=== PATIENT | female | born 1950 | race Caucasian/White ===

== ENCOUNTER 2020-02-17 07:21 | Outpatient (CLI) | payer MEDICARE, OTHER, SELFPAY ==
--- NOTE | ~2020-02-17 | MM_ITS ---
EXAMINATION: MM screening [facility] BI w nader HISTORY: Screening TECHNIQUE: Craniocaudal and mediolateral oblique 3-D tomosynthesis images were obtained and synthetic 2-D images were generated. CAD analysis was submitted and interpreted. COMPARISON: Comparison to multiple prior studies sequentially, with oldest reviewed study dated 02/24. BREAST PARENCHYMAL COMPOSITION: There are scattered areas of fibroglandular density. FINDINGS: There is no evidence of suspicious mass, calcification, or architectural distortion to sugg est malignancy in either breast. There has been no suspicious interval change. IMPRESSION: 1. No mammographic evidence of malignancy. 2. Recommend routine screening mammography in one year. BI-RADS Category 1: Negative Reviewed, dictated and finalized at location A.
== END 2020-02-17 07:22 | disposition home or self-care (01) ==
LOC: ANHIMG 07:23
PROVIDERS: PCP Family Medicine; Visit Provider Obstetrics & Gynecology
DX: Z12.31 Encounter for screening mammogram for malignant neoplasm of breast (principal)
CPT/HCPCS: 77063; 77067

== ENCOUNTER 2020-10-06 11:16 | Outpatient (CLI) | payer MEDICARE, OTHER, SELFPAY ==
[2020-10-06 12:09] LABS: Alanine Aminotransferase 15 U/L (4-35); Albumin Level 4.1 g/dL (3.5-5.1); Alkaline Phosphatase 101 U/L (38-126); Anion Gap 4 mmol/L (8-16); Aspartate Amino Transferase 23 U/L (14-36); Bilirubin,Total 0.3 mg/dL (0.2-1.3); Blood Urea Nitrogen 20 mg/dL (7-17); Calcium 9.3 mg/dL (8.4-10.2); Carbon Dioxide 30 mmol/L (22-30); Chloride 104 mmol/L (98-107); Estimated Glomerular Filt Rate > 60; Glucose 96 mg/dL (65-105); Potassium 4.2 mmol/L (3.4-5.0); Sodium 138 mmol/L (137-145)
== END 2020-10-06 11:17 | disposition home or self-care (01) ==
PROVIDERS: PCP Family Medicine; Visit Provider Family Medicine
DX: I10 Essential (primary) hypertension (principal)
CPT/HCPCS: 36415; 80053

== ENCOUNTER → 2021-04-09 00:29 | Outpatient (CLI) | payer MEDICARE, OTHER, SELFPAY ==
[2021-04-09 18:39] LABS: SARS-CoV-2 RNA PCR Negative
== END ==
PROVIDERS: PCP Family Medicine; Visit Provider Physician Assistant Medical
DX: Z20.822 Contact with and (suspected) exposure to COVID-19 (principal)
CPT/HCPCS: C9803; U0003; U0005

== ENCOUNTER 2021-05-09 08:04 | Outpatient (CLI) | payer MEDICARE, OTHER, SELFPAY ==
--- NOTE | ~2021-05-09 | MM_ITS ---
EXAMINATION: MM screening [facility] BI w nader HISTORY: Screening TECHNIQUE: Craniocaudal and mediolateral oblique 3-D tomosynthesis images were obtained and synthetic 2-D images were generated. CAD analysis was submitted and interpreted. COMPARISON: Comparison to multiple prior studies sequentially, with oldest reviewed study dated 02/24. BREAST PARENCHYMAL COMPOSITION: There are scattered areas of fibroglandular density. FINDINGS: There is no evidence of suspicious mass, calcification, or architectural distortion to sugg est malignancy in either breast. There has been no suspicious interval change. IMPRESSION: 1. No mammographic evidence of malignancy. 2. Recommend routine screening mammography in one year. BI-RADS Category 1: Negative Reviewed, dictated and finalized at location A.
== END 2021-05-09 08:05 | disposition home or self-care (01) ==
PROVIDERS: PCP Family Medicine; Visit Provider Obstetrics & Gynecology
DX: Z12.31 Encounter for screening mammogram for malignant neoplasm of breast (principal)
CPT/HCPCS: 77063; 77067

== ENCOUNTER 2022-06-15 08:42 | Outpatient (CLI) | payer MEDICARE, OTHER, SELFPAY ==
--- NOTE | ~2022-06-15 | MM_ITS ---
EXAMINATION: MM screening [facility] BI w nader HISTORY: Screening mammogram TECHNIQUE: Craniocaudal and mediolateral oblique 3-D tomosynthesis images were obtained and synthetic 2-D images were generated. CAD analysis was submitted and interpreted. COMPARISON: 05/09/2021, 02/17/2020, 01/25/2019 bilateral screening mammogram examinations BREAST PARENCHYMAL COMPOSITION: There are scattered areas of fibroglandular density. FINDINGS: There is no evidence of suspicious mass, calcification, or architectural distortion to sugg est malignancy in either breast. There has been no suspicious interval change. IMPRESSION: 1. No mammographic evidence of malignancy. 2. Recommend routine screening mammography in one year. BI-RADS Category 1: Negative Reviewed, dictated and finalized at location A. DATION CONSULTANT
== END 2022-06-15 08:43 | disposition home or self-care (01) ==
LOC: ANHIMG 08:45
PROVIDERS: PCP Family Medicine; Visit Provider Obstetrics & Gynecology
DX: Z12.31 Encounter for screening mammogram for malignant neoplasm of breast (principal)
CPT/HCPCS: 77063; 77067

== ENCOUNTER 2023-05-14 08:37 | Outpatient (CLI) | payer MEDICARE, OTHER, SELFPAY ==
[2023-05-14 20:00] LABS: Anion Gap 3 mmol/L (8-16); Blood Urea Nitrogen 17 mg/dL (7-17); Calcium 9.4 mg/dL (8.4-10.2); Carbon Dioxide 32 mmol/L (22-30); Chloride 104 mmol/L (98-107); Estimated Glomerular Filt Rate > 60; Glucose 84 mg/dL (65-110); Potassium 4.6 mmol/L (3.4-5.0); Sodium 139 mmol/L (137-145)
== END 2023-05-14 08:38 | disposition home or self-care (01) ==
LOC: ANHGOSHLAB 08:38
PROVIDERS: PCP Family Medicine; Visit Provider Family Medicine
DX: I10 Essential (primary) hypertension (principal)
CPT/HCPCS: 36415; 80048

== ENCOUNTER 2023-07-24 07:42 | Outpatient (CLI) | payer MEDICARE, OTHER, SELFPAY ==
--- NOTE | ~2023-07-24 | MM_ITS ---
EXAMINATION: MM screening [facility] BI w nader HISTORY: Screening mammogram TECHNIQUE: Craniocaudal and mediolateral oblique 3-D tomosynthesis images were obtained and synthetic 2-D images were generated. CAD analysis was submitted and interpreted. COMPARISON: 06/15/2022, 05/09/2021, 02/17/2020 bilateral screening mammogram examinations BREAST PARENCHYMAL COMPOSITION: The breasts are almost entirely fatty. FINDINGS: There is no evidence of suspicious mass, calcification, or architectural distortion to sugg est malignancy in either breast. There has been no suspicious interval change. IMPRESSION: 1. No mammographic evidence of malignancy. 2. Recommend routine screening mammography in one year. BI-RADS Category 1: Negative Reviewed, dictated and finalized at location A. DUMPER
== END 2023-07-24 07:43 | disposition home or self-care (01) ==
LOC: ANHIMG 07:44
PROVIDERS: PCP Family Medicine; Visit Provider Family Medicine
DX: Z12.31 Encounter for screening mammogram for malignant neoplasm of breast (principal)
CPT/HCPCS: 77063; 77067

== ENCOUNTER 2024-09-20 06:19 | Day surgery (SDC) | payer MEDICARE, OTHER, SELFPAY ==
[2024-06-15 08:32] VITALS: BMI 32.6
[2024-08-30 13:24] VITALS: BMI 31.6
--- OUTSIDE RECORDS SUMMARY | 2024-09-20 06:30 | XMS_ITS | Patient Health Summary ---
Author Organization [facility] Address [address] [place] [address] Care Team Providers Care Regulatory Intern Name Role Phone Chi Bull MD Primary Care Provider +1- [phone] Note from [facility],non-owned Affiliates and Associated Physician Practices is amultiple site organization consisting of ambulatory clinics and hospital sitesin [place], [place], [place] and [place]. This disclosure is being madepursuant to the Care Everywhere program and may not contain all information available regarding this patient. Last updated 18.[facility] Social History Tobacco Use Types Packs/Day Years Used Date Smoking Tobacco: Never Alcohol Use Standard Drinks/Week Comments No 0 (1 standard drink = 0.6 oz pur e alcohol) Sex and Gender Information Value Date Recorded Sex Assigned at Not on file Gender Identity Not on file Sexual Orientation Not on file Last Filed Vital Signs Vital Sign Reading Time Taken Comments Blood Pressure 160/80 05/11/2013 11:32 AM CDT Pulse - - Temperature 36.9 C (98.5 F) 05/11/2013 11:32 AM CDT Respiratory Rate - - Oxygen Saturation - - Inhaled Oxygen Concentration - - Weight 96.6 kg (213 lb) 05/11/2013 11:32 AM CDT Height 160 cm (5' 3 ) 05/11/2013 11:32 AM CDT Body Mass Index 37.73 05/11/2013 11:32 AM CDT Procedures * XR KNEE RIGHT 4VW OR MORE(Performed 05/11/2013) Results * XR KNEE RIGHT 4VW OR MORE (05/11/2013 11:11 AM CDT) Anatomical Region Laterality Modality Lower Extremity Other Impressions 05/11/2013 1:00 PM CDT Impression: Mild medial and patellofemoral compartment osteoarthritis. This report was electronically signed by LEO RIVERA MD on 05/11/2013 1:00 PM . Narrative 05/11/2013 1:00 PM CDT Right knee, 4 views. History: Knee pain. Comparison: None. Findings: There is no acute fracture or dislocation. There is mild medial compartment joint space narrowing. There is also mild patellofemoral compartment joint space narrowing medially. There are small tricompartmental osteophytes. A small ossific fragment versus calcification is noted adjacent to the medial femoral condyle which could relate to prior traumatic injury or medial collateral ligament sprain. No effusion is seen. Procedure Note Leo Rivera MD - 10/26/2017 Right knee, 4 views. History: Knee pain. Comparison: None. Findings: There is no acute fracture or dislocation. There is mild medialcompartment joint space narrowing. There is also mild patellofemoralcompartment joint space narrowing medially. There are smalltricompartmental osteophytes. A small ossific fragment versus calcification is noted adjacent to the medial femoral condyle which couldrelate to prior traumatic injury or medial collateral ligament sprain. Noeffusion is seen. IMPRESSION Impression: Mild medial and patellofemoral compartment osteoarthritis. This report was electronically signed by LEO RIVERA MD on05/11/2013 1:00 PM . Juan Flores MD DIAGNOSTIC IMAGING ORDERABLES Care Teams Regulatory Intern Relationship Specialty Start Date End Date Chi Bull MD [address] [place] [phone] PCP - General 04/30/13
--- OUTSIDE RECORDS SUMMARY | 2024-09-20 06:30 | XMS_ITS | Referral Summary ---
Author Organization [facility] Address [address] [place] [address] Care Team Providers Care Foreign Exchange Trader Name Role Phone Chi Bull MD Primary Care Provider +1- [phone] Source Comments [facility],non-owned Affiliates and Associated Physician Practices is amultiple site organization consisting of ambulatory clinics and hospital sitesin [place], [place], [place] and [place]. This disclosure is being madepursuant to the Care Everywhere program and may not contain all information available regarding this patient. Last updated 18.[facility] Social History Tobacco Use Types Packs/Day Years [...] Mass Index 37.73 05/11/2013 11:32 AM CDT Plan of Treatment Not on file Care Teams Foreign Exchange Trader Relationship Specialty Start Date End Date Chi Bull MD [facility] [place] [place] [phone] PCP - General 04/30/13
--- OUTSIDE RECORDS SUMMARY | 2024-09-20 06:30 | XMS_ITS | Clinical Summary ---
Author Organization [facility] Address [address] [place] [address] Care Team Providers Care Order Desk Caller Name Role Phone Unavailable Primary Care Provider Unavailabl e Social History Tobacco Use Types Packs/Day Years Used Date Smoking Tobacco: Never Assessed Comments Unknown Sex and Gender Information Value Date Recorded Sex Assigned at Not on file Legal Sex Female 4:05 PM CDT Gender Identity Not on file Sexual Orientation Not on file Plan of Treatment Health Maintenance Due Date Last Done Comments Colorectal Cancer Screening Colonoscopy (10 Years) 1950 Hepatitis C 1969 DTaP, Tdap and Td Vaccines ( 1 - Tdap) 1970 Mammogram Screening 1991 Zoster Vaccines (1 of 2) 2001 Dexa Scan (General) 02/08/2016 Pneumococcal Vaccine: 65+ Ye ars (1 of 1 - PCV) 02/08/2016 COVID-19 Vaccine (2023-2 5 season) 2024 Influenza Adult (#1) 2024 RSV Immunization or 60+ Years (1 - 1-dose 75+ series) 2026 Meningococcal B Vaccine Aged Out No l onger eligible based on patient's age to complete this topic Meningococcal Vaccine Aged Out No keith aster eligible based on patient's age to complete this topic RSV Immunizations Under 20 Months Aged Out No longer eligible based on patient's age to complete this topic
--- OUTSIDE RECORDS SUMMARY | 2024-09-20 06:30 | XMS_ITS | Clinical Summary ---
Author Organization [facility] Address [address] [facility] [place] [address] Care Team Providers Care Cane Piler Name Role Phone Chi Bull MD Primary Care Provider +1- [phone] Source Comments [facility],non-owned Affiliates and Associated Physician Practices is amultiple site organization consisting of ambulatory clinics and hospital sitesin [place], [place], [place] and [place]. This disclosure is being madepursuant to the Care Everywhere program and may not contain all information available regarding this patient. Last updated 18.[facility] Social History Tobacco Use Types Packs/Day Years [...] 05/11/2013 11:32 AM CDT Plan of Treatment Health Maintenance Due Date Last Done Comments BONE DENSITY TESTING 1950 COLOGUARD (AGES 45-75) - COL ON CA SCREENING 1950 COLON MONITORING 1950 COLONOSCOPY - COLON CA SCREENING 1950 CT COLONOGRAPHY - COLON CA SCREENING 1950 Colorectal Cancer Screening 1950 FIT - COLON CA SCREENING 1950 FLEX SIG - COLON CA SCREENING 1950 LIPID TESTING 1950 MAMMOGRAM 1950 HEPATITIS C SCREENING 02/02/1969 DTAP/TDAP/TD VACCINES (1 - Tdap) 1970 PNEUMOCOCCAL VACCINE 50+ (1 of 1 - PCV) 2001 ZOSTER VACCINE (1 of 2) 2001 COVID-19 VACCINE (1 - 2023-2 5 season) 2024 INFLUENZA VACCINE (#1) 2024 DEPRESSION SCREENING 07/28/2024 Respiratory Syncytial Virus (RSV) Vaccine Pt: or over 60 yrs (1 - 1-dose 75+ series) 2026 HEPATITIS B VACCINE Aged Out No longe r eligible based on patient's age to complete this topic HIB VACCINE Aged Out No longer eligi ble based on patient's age to complete this topic HPV VACCINE Aged Out No longer eligi ble based on patient's age to complete this topic MENINGOCOCCAL (Group B) VACCINE Aged Out No longer eligible based on patient's age to complete this topic MENINGOCOCCAL VACCINE Aged Out No keith aster eligible based on patient's age to complete this topic Care Teams Cane Piler Relationship Specialty Start Date End Date Chi Bull MD [address] [place] [phone] PCP - General 04/30/13
[2024-09-20 06:50] VITALS: BP 137/58; PULSE 75; RESP 16; TEMP 36.9; O2SAT 100
--- NOTE | 2024-09-20 06:51 | P.PNAN_ITS ---
Anes - Initial Pre Proc Eval Procedure: Operation Date: 09/20/24 08:00 Proposed Procedures p Screening Colonoscopy - Armaan Colorado MD Date/Time: 09/20/24 06:51 Surgeon: Armaan Colorado MD Pre Op Diagnosis: Screening Neoplasm of Colon Patient Data Age: 74 Gender: F Height: 1.6 m Weight: 82.5 kg Allergies Allergy/AdvReac Type Severity Reaction Status Date / Time No Known Allergies Allergy Verified 09/20/24 06:49 Home Medications ?Medication ?Instructions ?Recorded ?Confirmed ?Type vitamins A,C,J-hiwl-yidiwn 4,296 1 cap PO BID 08/24/19 09/20/24 History mcg-226 mg-90 mg capsule (PreserVision AREDS) albuterol sulfate 90 mcg/actuation 2 puff inhalation Q4H PRN 05/19/24 09/20/24 Rx aerosol inhaler bronchospasm #8.5 grams lisinopril 10 mg tablet 10 mg PO DAILY #90 tabs 05/19/24 09/20/24 Rx Patient hx anesthesia problems: none Family hx anesthesia problems: none Results Review: All pre-operative results and documents have been reviewed as part of the pre- operative evaluation. [facility] Past Medical History Medical History (Updated 09/17/24 @ 16:09 by Leo Love DO) Asthma Anemia Endometrial hyperplasia, unspecified Unspecified closed fracture of ankle Obesity (BMI 30.0-34.9) Colon cancer screening HTN (hypertension), benign Family History Family History Father Hypertension Family history of cardiovascular disease Mother Hypertension Family history of cardiovascular disease Family history of malignant neoplasm of breast in first degree relative Social History Social History Smoking status: Former smoker Tobacco type: cigarettes Alcohol intake: current Alcohol use details: 4-5 glasses of wine per month Substance use type: does not use Lack of Transportation: No Lack of Food: Never True Current Housing: I Have Housing Concerned About Future Housing: No Difficulty Paying Gas/Electric Bills: No Difficulty Paying for Meds: No Currently Unemployed: No Education: Associate Degree Difficulty w/ Childcare or Family Care: No Living arrangements: with family Spiritual care concerns: No Anes - Eval Final PreProcedure Day of Procedure 09/20/24 06:51 Patient weight: obese Heart: regular rate and rhythm Lungs: clear to auscultation Airway: Mallampati scale class II Neurological: alert and oriented Last oral intake: >/= 8 hours ASA classification: III Emergent: no Anesthetic plan: proceed Anesthesia type and monitoring: general GIVS and standard monitoring Results Review: All pre-operative results and documents have been reviewed as part of the pre- operative evaluation. Informed Consent: The patient's anesthetic plan and its attendant risks and benefits were discussed with the patient/family/POA. Questions were solicited and answers provided to the satisfaction of the patient/family/POA.
[2024-09-20] MEDS: LACTATED RINGERS 1,000 ML 150 ML IV CONT (07:00)
--- NOTE | 2024-09-20 08:00 | PM.IMHP ---
H&P: HPI History of Present Illness Date/Time: 09/20/24 08:00 Chief Complaint: Screening colonoscopy Narrative: This is the patient's first colonoscopy after 10 years. There are no GI symptoms and there is no family history of colorectal cancer. Review of Systems Review of Systems: All systems reviewed & are unremarkable except as noted in HPI and below PMFSH Past Medical History Medical History (Updated 09/17/24 @ 16:09 by Leo Love DO) Asthma Anemia Endometrial hyperplasia, unspecified Unspecified closed fracture of ankle Obesity (BMI 30.0-34.9) Colon cancer screening HTN (hypertension), benign Family History Family History Father Hypertension Family history of cardiovascular disease Mother Hypertension Family history of cardiovascular disease Family history of malignant neoplasm of breast in first degree relative Social History Social History Smoking status: Former smoker Tobacco type: cigarettes Alcohol intake: current Alcohol use details: 4-5 glasses of wine per month Substance use type: does not use Lack of Transportation: No Lack of Food: Never True Current Housing: I Have Housing Concerned About Future Housing: No Difficulty Paying Gas/Electric Bills: No Difficulty Paying for Meds: No Currently Unemployed: No Education: Associate Degree Difficulty w/ Childcare or Family Care: No Living arrangements: with family Spiritual care concerns: No Meds Home Medications and Allergies Home Medications ?Medication ?Instructions ?Recorded ?Confirmed ?Type vitamins A,C,C-gdna-mcpvpa 4,296 1 cap PO BID 08/24/19 09/20/24 History mcg-226 mg-90 mg capsule (PreserVision AREDS) albuterol sulfate 90 mcg/actuation 2 puff inhalation Q4H PRN 05/19/24 09/20/24 Rx aerosol inhaler bronchospasm #8.5 grams lisinopril 10 mg tablet 10 mg PO DAILY #90 tabs 05/19/24 09/20/24 Rx Allergies Allergy/AdvReac Type Severity Reaction Status Date / Time No Known Allergies Allergy Verified 09/20/24 06:49 Vital Signs Vital Signs - 24 hr 09/20/24 06:50 Temperature 98.4 F Pulse Rate 75 Respiratory Rate 16 Blood Pressure 137/58 L Pulse Oximetry 100 Oxygen Delivery Room Air Exam Const: General: cooperative and healthy appearing Resp: Effort & Inspection: normal respiratory effort and able to speak in complete sentences Auscultation: clear to auscultation bilaterally Cardio: Rate: regular rate Rhythm: regular rhythm GI: Inspection: normal to inspection GI Palp: No No hepatosplenomegaly present Auscultation: normal bowel sounds Rectal Exam: deferred Skin: General skin exam: normal color Psych: Appearance: grossly normal Mental Status: mental status grossly normal Assessment and Plan Assessment and plan (1) Colon cancer screening: Code(s): Z12.11 - Encounter for screening for malignant neoplasm of colon Status: Acute Assessment and Plan: The patient is deemed a good candidate for the procedure. Consent signed. Will proceed.
[2024-09-20 08:24] VITALS: BP 95/78; PULSE 61; RESP 15; O2SAT 100
[2024-09-20 08:34] VITALS: BP 139/60; PULSE 57; RESP 15; O2SAT 100
[2024-09-20 08:44] VITALS: BP 144/56; PULSE 57; RESP 16; O2SAT 100
--- NOTE | 2024-09-20 10:05 | WPDANESPN ---
Anes - Prog Note Post-Op Date/Time: 09/20/24 10:05 Cardiovascular status: normal Respiratory status: normal Airway patency: baseline Mental status: baseline Post-Op hydration status: normal Vital Signs: Last Vital Signs Temp 36.9 C 09/20/24 06:50 Pulse 57 L 09/20/24 08:44 Resp 16 09/20/24 08:44 BP 144/56 H 09/20/24 08:44 Pulse Ox 100 09/20/24 08:44 O2 Del Method Room Air 09/20/24 08:44 Pain Score (VAS): 0 I/O: Intake & Output 09/19/24 09/20/24 09/20/24 23:59 07:59 15:59 Intake Total 450 Balance 450 Post-procedural complaints: none Patient Feedback: Patient satisfied with anesthetic care. Other Findings: Patient vital signs back to baseline. Patient denies nausea and vomiting. Patient's pain under control. Patient OK for discharge.
== END 2024-09-20 08:55 | disposition home or self-care (01) ==
PROVIDERS: PCP Family Medicine; Visit Provider Internal Medicine Gastroenterology
PROC: 0DJD8ZZ Inspection of Lower Intestinal Tract, Via Natural or Artificial Opening Endoscopic (ICD-10-PCS; CPT 45378; principal; 2024-09-20 08:00)
DX: Z12.11 Encounter for screening for malignant neoplasm of colon (principal)
CPT/HCPCS: G0121

== ENCOUNTER 2024-11-03 13:15 | Outpatient (CLI) | payer MEDICARE, OTHER, SELFPAY ==
--- NOTE | ~2024-11-03 | DEXA_ITS ---
Bone Density Report Name: ADAMA BRITO Age: 74 Sex: Female Ethnicity: White Date of : 1950 Indication: postmenopausal; screening for osteoporosis; Referring Provider: KRYSTYNA ALEXIS Study: Bone densitometry was performed. Exam Date: November 03, 2024 Accession number: [id number] Bone Density: Region BMD T-score Z-score Classification AP Spine(L1-L4) 0.957 -0.8 1.5 Normal Femoral Neck (Left) 0.638 -1.9 0.1 Osteopenia Total Hip (Left) 0.741 -1.6 0.1 Osteopenia Femoral Neck (Right) 0.616 -2.1 -0.1 Osteopenia Total Hip (Right) 0.673 -2.2 -0.5 Osteopenia Total Hip Mean 0.707 -1.9 -0.2 Osteopenia World Health Organization criteria for BMD impression classify patients as: Normal (T-score at or above -1.0), Osteopenia (T-score between -1.0 and -2.5), or Osteoporosis (T-score at or below -2.5). 10-year Fracture Risk(1): Major Osteoporotic Fracture 12% Hip Fracture 2.8% Reported Risk Factors: [place] (), Neck BMD=0.616, BMI=33.4 (1) FRAX(R) Version 3.08. Fracture probability calculated for an untreated patient. Fracture probability may be lower if the patient has received treatment. Previous Exams: Region Exam Age BMD T-score BMD Change BMD Change Date g/cm2 vs Baseline vs Previous AP Spine (L1-L4) 11/03/2024 74 0.957 -0.8 -0.033 (-3.4%) -0.033 (-3.4%) 08/19/2016 66 0.991 -0.5 Total Hip(Left) 11/03/2024 74 0.741 -1.6 -0.130 (-14.9% -0.130 (-14.9% 08/19/2016 66 0.871 -0.6 Total Hip(Right) 11/03/2024 74 0.673 -2.2 -0.162 (-19.4% -0.162 (-19.4% 08/19/2016 66 0.836 -0.9 *Denotes significance at 95% confidence level, LSC for AP Spine = 0.022 g/cm2, LSC for Total Hip = 0.027 g/cm2 # Denotes dissimilar scan types or analysis methods Clinical Information Provided by Patient: Patient maximum height was 63.0 Menopause Age: 56 Drinks caffeinated beverages Onset of menses at age 11 Number of children 2 Impression: The patient has low bone mass, based on the Right Total Hip T-score. The patient has an estimated ten-year risk of hip fracture of 2.8% and an estimated ten-year risk of major fracture of 12%, based on the WHO FRAX algorithm. No significant bone loss was observed. Discussion: BONE DENSITY IS LOW AT ONE OR MORE SKELETAL SITES. This patient's lowest T-score is low at one or more skeletal sites. It meets the World Health Organization's (WHO) criteria for ?low bone mass? (T-score between -1.0 and -2.5). The patient's 10-year risk of fracture as calculated by FRAX is less than the threshold where pharmacological therapy is recommended by the National Osteoporosis Foundation (NOF). However, all treatment decisions require clinical judgment and consideration of individual patient factors, including patient preferences, comorbidities, previous drug use, risk factors not captured in the FRAX model (e.g., frailty, falls, vitamin D deficiency, increased bone turnover, interval significant decline in bone density) and possible under or overestimation of fracture risk by FRAX. The patient should follow a healthful lifestyle (good nutrition with adequate calcium and vitamin D, and appropriate weight-bearing exercise). Follow-Up: Consider repeating this study in 2 to 3 years to reassess this patient's status, or sooner if there is some new clinical indication. Reported by: SAGAR on 11/03/2024 1:54:00 PM. Reviewed, dictated and finalized at location A. PRAVIN
--- OUTSIDE RECORDS SUMMARY | 2024-11-03 14:47 | XMS_ITS | Clinical Summary ---
Author Organization [facility] Address [address] [place] [address] Care Team Providers Care Bottom Bleacher Name Role Phone Unavailable Primary Care Provider [...] of 1 - PCV) 02/08/2016 COVID-19 Vaccine ( - 2023-2 5 season) 2024 RSV Immunization or 60+ Years (1 [...]
--- OUTSIDE RECORDS SUMMARY | 2024-11-03 14:47 | XMS_ITS | Clinical Summary ---
Author Organization [facility] [employer] Address [address] [place] [address] Care Team Providers Care Social Work Coordinator Name Role Phone Chi Bull MD Primary Care Provider +1- [phone] Source Comments [facility] [employer],non-owned Affiliates and Associated Physician Practices is amultiple site organization consisting of ambulatory clinics and hospital sitesin [place], [place], [place] and [place]. This disclosure is being madepursuant to the Care Everywhere program and may not contain all information available regarding this patient. Last updated 18.[facility] [employer] Social History Tobacco Use Types Packs/Day Years [...] VACCINE (1 - 2023-2 5 season) 2024 DEPRESSION SCREENING 07/28/2024 INFLUENZA VACCINE (Season Ended) 2025 Respiratory Syncytial Virus (RSV) Vaccine Pt: or [...] to complete this topic MENINGOCOCCAL (Group B) VACC INE SHARED DECISION-MAKING Aged Out No longer eligibl e based on patient's age to complete this topic MENINGOCOCCAL GROUPS A/C/Y/W VACCINE Aged Out No longer eligible b ased on patient's age to complete this topic Care Teams Social Work Coordinator Relationship Specialty Start Date End Date Chi Bull MD [address] [place] [phone] PCP - General 04/30/13
== END 2024-11-03 13:16 | disposition home or self-care (01) ==
LOC: ANHIMG 13:16
PROVIDERS: PCP Family Medicine; Visit Provider Family Medicine
DX: M85.89 Other specified disorders of bone density and structure, multiple sites (principal); Z78.0 Asymptomatic menopausal state
CPT/HCPCS: 77080

== ENCOUNTER 2025-05-26 09:53 | Outpatient (CLI) | payer MEDICARE, OTHER, SELFPAY ==
--- OUTSIDE RECORDS SUMMARY | 2025-05-26 10:47 | XMS_ITS | Clinical Summary ---
Author Organization [facility] Address [address] [place] [address] Care Team Providers Care Chlorine Operator Name Role Phone Unavailable Primary Care Provider [...] 1 - Tdap) 1970 Mammogram Screening 1991 Pneumococcal Vaccine: 50+ Ye ars (1 of 1 - PCV) 2001 Zoster Vaccines (1 of 2) 2001 Dexa Scan (General) 02/08/2016 COVID-19 Vaccine (2024-2 6 season) 2025 Influenza Adult (#1) 2025 RSV Immunization or 60+ Years (1 - 1-dose 75+ series) 2026 Hepatitis A Vaccines Aged Out No long er eligible based on patient's age to complete this topic Meningococcal B Vaccine Aged Out No l onger eligible based on patient's age to complete this topic Meningococcal Vaccine Aged Out No keith aster eligible based on patient's age to complete this topic RSV Immunizations Under 20 Months Aged Out No longer eligible based on patient's age to complete this topic
--- OUTSIDE RECORDS SUMMARY | 2025-05-26 10:47 | XMS_ITS | Clinical Summary ---
Author Organization [facility] [employer] Address [address] [place] [address] Care Team Providers Care Switch Maker Name Role Phone Chi Bull MD Primary Care Provider [phone] Source Comments [facility],non-owned Affiliates and Associated Physician Practices is amultiple site organization consisting of ambulatory clinics and hospital sitesin [place], [place], [place] and [place]. This disclosure is being madepursuant to the Care Everywhere program and may not contain all information available regarding this patient. Last updated 18.[facility] [employer] Social History Tobacco Use Types Packs/Day Years Used Date Smoking Tobacco: Never Alcohol Use Standard Drinks/Week Comments No 0 (1 standard drink = 0.6 oz pur e alcohol) Comments Unknown Sex and Gender Information Value Date Recorded Sex Assigned at Not on file Legal Sex Female 6:42 PM [employer] Gender Identity Not on file Sexual Orientation [...] 11:32 AM CDT Height 160 cm (5' 3) 05/11/2013 11:32 AM CDT Body Mass Index [...] 2001 ZOSTER VACCINE (1 of 2) 2001 DEPRESSION SCREENING 07/28/2024 COVID-19 VACCINE (1 - 2023-2 5 season) 2025 INFLUENZA VACCINE (#1) 2025 Respiratory Syncytial Virus (RSV) Vaccine Pt: [...] age to complete this topic Care Teams Switch Maker Relationship Specialty Start Date End Date Chi Bull MD [address] [place] [id number] PCP - General 04/30/13
[2025-05-26 19:14] LABS: Alanine Aminotransferase 18 U/L (6-35); Albumin Level 4.2 g/dL (3.5-5.1); Alkaline Phosphatase 87 U/L (38-126); Anion Gap 7 mmol/L (4-12); Aspartate Amino Transferase 37 U/L (14-36); Bilirubin,Total 0.5 mg/dL (0.2-1.3); Blood Urea Nitrogen 25 mg/dL (7-17); Calcium 9.6 mg/dL (8.4-10.2); Carbon Dioxide 27 mmol/L (22-30); Chloride 102 mmol/L (98-107); Cholesterol 204 mg/dL (0-200); Estimated Glomerular Filt Rate > 60; Glucose 79 mg/dL (65-110); HDL Direct 48 mg/dL; Sodium 136 mmol/L (137-145); Total Protein 7.2 g/dL (6.3-8.2); Triglycerides 84 mg/dL (<150)
[2025-05-26 19:22] LABS: Potassium 4.2 mmol/L (3.4-5.0)
== END 2025-05-26 09:54 | disposition home or self-care (01) ==
PROVIDERS: PCP Family Medicine; Visit Provider Student in an Organized Health Care Education/Training Program
DX: I10 Essential (primary) hypertension (principal); E78.2 Mixed hyperlipidemia; E55.9 Vitamin D deficiency, unspecified; R39.9 Unspecified symptoms and signs involving the genitourinary system; E66.9 Obesity, unspecified; Z68.30 Body mass index [BMI] 30.0-30.9, adult; M85.80 Other specified disorders of bone density and structure, unspecified site; N39.0 Urinary tract infection, site not specified; Z78.0 Asymptomatic menopausal state
CPT/HCPCS: 36415; 80053; 80061; 82306; 87077; 87086; 87186